=== PATIENT | female | born 1995 | race Two or more races ===

== ENCOUNTER 2016-10-06 22:44 | Emergency (ER) | payer BC, OTHER ==
[~2016-10-06 22:44] MED LIST: PROAIR HFA8.5 GM INH
[2016-10-06 22:51] VITALS: BP 111/72
[2016-10-06] MEDS ORDERED: CEPH500T PO (23:03)
--- NOTE | 2016-10-06 23:03 | PHYS DOC ---
Past Medical History Past Medical History: Asthma Past Surgical History: No Surgical History Alcohol Use: None Drug Use: None Adult General Chief Complaint Chief Complaint: TOE PROBLEM [facility] HPI Patient is a 21 year old female presents emergency department stating that her right great toe has been having pain and discomfort for the last 2 days. She states that she attempted toenails and had pulled piece of skin back and it started bleeding. She states that she has had some thick yellow drainage coming from the site. She has been using peroxide and Epsom salts soaks with no relief. Patient denies taking anything for pain and discomfort. She denies fever , chills or any nausea vomiting. Review of Systems Review of Systems Constitutional: Denies fever or chills [] Eyes: Denies change in visual acuity, redness, or eye pain [] HENT: Denies nasal congestion or sore throat [] Respiratory: Denies cough or shortness of breath [] Cardiovascular: No additional information not addressed in HPI [] GI: Denies abdominal pain, nausea, vomiting, bloody stools or diarrhea [] : Denies dysuria or hematuria [] Musculoskeletal: Denies back pain or joint pain [] Integument: Denies rash or skin lesions. Complaint of redness with yellow drainage and tenderness on the medial part of the right great toe Neurologic: Denies headache, focal weakness or sensory changes [] Endocrine: Denies polyuria or polydipsia [] Allergies Allergies Allergies Coded Allergies Type Severity Reaction Last Updated Verified Penicillins Allergy Unknown 06/04/15 Yes Physical Exam Physical Exam Constitutional: Well developed, well nourished, no acute distress, non-toxic appearance. [] HENT: Normocephalic, atraumatic, bilateral external ears normal, oropharynx moist, no oral exudates, nose normal. [] Eyes: PERRLA, EOMI, conjunctiva normal, no discharge. [] Neck: Normal range of motion, no tenderness, supple, no stridor. [] Cardiovascular:Heart rate regular rhythm Lungs & Thorax: No respiratory distress noted Skin: Warm, dry, no erythema, no rash. [] Back: No tenderness Extremities: No tenderness, no cyanosis, no clubbing, ROM intact, no edema. Patient's right great toe on the medial part appears to be inflamed with tenderness noted, minimal drainage noted from the area that appears to be clear to yellowish in color. Neurologic: Alert and oriented X 3, normal motor function, normal sensory function, no focal deficits noted. [] Psychologic: Affect normal, judgement normal, mood normal. [] Current Patient Data Vital Signs Vital Signs Date Time Temp Pulse Resp B/P (MAP) Pulse Ox O2 Delivery O2 Flow Rate FiO2 10/06/16 22:51 98.8 78 19 99 Room Air 98.8 EKG EKG [] Radiology/Procedures Radiology/Procedures [] Course & Med Decision Making Course & Med Decision Making Pertinent Labs and Imaging studies reviewed. (See chart for details) Patient will be provided with Keflex for infection and she is breast-feeding. She'll be instructed to use Tylenol or ibuprofen for pain and discomfort. Continue with the warm Epsom salt soaks 4-5 times a day. Also recommended not using peroxide as it has been known to delay healing. Patient will be discharged home in stable condition. Signs and symptoms to return back to emergency department as been provided. Patient agrees with discharge instructions treatment regimens and follow-up recommendations. [] Dragon Disclaimer Dragon Disclaimer This electronic medical record was generated, in whole or in part, using a voice recognition dictation system. Departure Departure Impression: Primary Impression: Paronychia of great toe, right Disposition: 01 HOME, SELF-CARE Condition: STABLE Referrals: NO PCP (PCP) Patient Instructions: Paronychia, [id number] Additional Instructions: Activity as tolerated. Medications as prescribed. Tylenol for pain and discomfort. Elevation as much as possible. Warm Epsom salt soaks 4-5 times a day for 20 minutes at a time. Avoid using peroxide on the areas as delays healing. You may apply antibiotic ointment to the area after cleaning it with soap and water. Follow-up to primary care physician in the next 3-5 days. Return back to emergency department for signs and symptoms become worse. Scripts Cephalexin (CEPHALEXIN) 500 Mg Tablet 1 TAB PO BID, #20 TAB Prov: LAVON CAMPOS APRN 10/06/16 LAVON CAMPOS APRN Oct 06, 2016 23:03
== END 2016-10-06 23:01 | disposition home or self-care (01) ==
LOC: ER 22:44
DX: L03.031 Cellulitis of right toe (principal); J45.909 Unspecified asthma, uncomplicated; Z88.0 Allergy status to penicillin
CPT/HCPCS: 99283

== ENCOUNTER 2017-04-25 12:07 | Emergency (ER) | payer SELFPAY, BC ==
[2017-04-25] MEDS: HYDROcodone/APAP 5/325MG 1 TAB TABLET PO (14:28)
[2017-04-25 14:31] LABS: URINE HCG POC HCG NEGATIVE (Negative)
[2017-04-25 14:32] LABS: BILIRUBIN,URINE NEGATIVE (NEG); CLARITY,URINE CLEAR; COLOR,URINE YELLOW; GLUCOSE,URINE NEGATIVE (NEG); NITRITE,URINE NEGATIVE (NEG); PROTEIN,URINE NEGATIVE (NEG-TRACE); UROBILINOGEN,URINE 0.2 mg/dL (0.2 mg/dL)
[2017-04-25 14:47] LABS: BACTERIA,URINE FEW /HPF (0-FEW); RBC,URINE 0 /HPF (0-2); SQUAMOUS EPITHELIAL CELL,UR MOD /LPF; WBC,URINE OCC /HPF (0-4)
== END 2017-04-25 15:38 | disposition home or self-care (01) ==
LOC: ER 12:07
DX: S39.012A Strain of muscle, fascia and tendon of lower back, initial encounter (principal); J45.909 Unspecified asthma, uncomplicated; Z88.0 Allergy status to penicillin; V47.5XXA Car driver injured in collision with fixed or stationary object in traffic accident, initial encounter; Y93.I9 Activity, other involving external motion; Y92.410 Unspecified street and highway as the place of occurrence of the external cause; Y99.8 Other external cause status
CPT/HCPCS: 71046; 72100; 81001; 81025; 99285-25

== ENCOUNTER 2017-11-25 08:13 | Emergency (ER) | payer SELFPAY ==
[2017-11-25 08:38] LABS: ADD MAN DIFF? NO
[2017-11-25 08:43] LABS: BASO % 0 % (0-3); EOS # 0.4 x10^3/uL (0.0-0.7); EOS % 4 % (0-3); HEMATOCRIT 37.7 % (36.0-47.0); HEMOGLOBIN 12.7 g/dL (12.0-15.5); LYMPH # 2.2 x10^3/uL (1.0-4.8); LYMPH % 23 % (24-48); MEAN CORPUSCULAR HEMOGLOBIN 29 pg (25-35); MEAN CORPUSCULAR HGB CONC 34 g/dL (31-37); MEAN CORPUSCULAR VOLUME 85 fL (79-100); MONO # 0.8 x10^3/uL (0.0-1.1); MONO % 8 % (0-9); NEUT # 6.3 x10^3uL (1.8-7.7); NEUT % 65 % (31-73); PLATELET COUNT 194 x10^3/uL (140-400); RED BLOOD COUNT 4.45 x10^6/uL (3.50-5.40); RED CELL DISTRIBUTION WIDTH 14.2 % (11.5-14.5); WHITE BLOOD COUNT 9.6 x10^3/uL (4.0-11.0)
[2017-11-25 08:47] LABS: ANION GAP 10 (6-14); BLOOD UREA NITROGEN 7 mg/dL (7-20); BUN/CREATININE RATIO 14 (6-20); CALCIUM 8.5 mg/dL (8.5-10.1); CARBON DIOXIDE 24 mmol/L (21-32); CHLORIDE 102 mmol/L (98-107); CREATININE 0.5 mg/dL (0.6-1.0); GFR 155.7; GLUCOSE 104 mg/dL (70-99); POTASSIUM 3.5 mmol/L (3.5-5.1); SODIUM 136 mmol/L (136-145)
[2017-11-25 08:53] LABS: ALBUMIN 3.8 g/dL (3.4-5.0); ALBUMIN/GLOBULIN RATIO 1.2 (1.0-1.7); ALK PHOS 77 U/L (46-116); ALT (SGPT) 21 U/L (14-59); AST (SGOT) 18 U/L (15-37); TOTAL BILIRUBIN 0.4 mg/dL (0.2-1.0); TOTAL PROTEIN 7.1 g/dL (6.4-8.2)
[2017-11-25 09:09] LABS: INR 1.1 (0.8-1.1); PARTIAL THROMBOPLASTIN TIME 30 SEC (24-38); PROTHROMBIN TIME PATIENT 13.5 SEC (11.7-14.0)
[2017-11-25] MEDS: IV NORMAL SALINE 1000ML BAG 1,000 ML IV (11:11)
== END 2017-11-25 12:12 | disposition home or self-care (01) ==
LOC: ER 12:12
DX: O03.9 Complete or unspecified spontaneous abortion without complication (principal); O99.519 Diseases of the respiratory system complicating pregnancy, unspecified trimester; J45.909 Unspecified asthma, uncomplicated; Z88.0 Allergy status to penicillin; Z3A.00 Weeks of gestation of pregnancy not specified
CPT/HCPCS: 36415; 76801; 76817; 80053; 84702; 85025; 85610; 85730; 86900; 86901; 99285-25; J7030

== ENCOUNTER 2018-06-19 16:27 | Emergency (ER) | payer BC, OTHER ==
[~2018-06-19] VITALS: Ht 157.5 cm; Wt 74.4 kg
[~2018-06-19 16:27] MED LIST changes: +ALBU2.5V8 INH; +CEPH500T PO; +NITR100C62 PO; -PROAIR HFA8.5 GM INH
[2018-06-19 16:45] VITALS: BP 125/60
[2018-06-19 18:46] LABS: BILIRUBIN,URINE NEGATIVE (NEG); CLARITY,URINE TURBID; COLOR,URINE YELLOW; NITRITE,URINE NEGATIVE (NEG); PROTEIN,URINE NEGATIVE (NEG-TRACE)
[2018-06-19 18:52] LABS: BACTERIA,URINE MODERATE /HPF (0-FEW); RBC,URINE 0 /HPF (0-2); SQUAMOUS EPITHELIAL CELL,UR MANY /LPF
[2018-06-19 18:53] LABS: AMORPHOUS SEDIMENT,UR PRESENT /HPF
--- NOTE | 2018-06-19 19:48 | RAD ---
OB LIMITED History: Pelvic pain on the left, , urinary tract infection, cramping Comparison: May 18, 2018 Findings: Multiple transabdominal sonographic images of the pelvis are submitted. Uterus measured 12.6 x 8.8 x 16.7 cm. There is a single intrauterine fetus. There is demonstrable cardiac activity 157 bpm. There is breech presentation. Cervix measured 4.4 cm. anatomy is not well visualized at this age of the . Left maternal ovary measured 3.5 x 1.5 x 1.5 cm with normal low resistance vascularity. Right ovary is not well-visualized. There is posterior placenta, also apparently complete placenta previa. Biometry data are as follows: Biparietal diameter 3.23 cm corresponding 16 weeks 1 day Head circumference 12.59 cm corresponding with 16 weeks 3 days Abdominal circumference 10.26 cm corresponding 16 weeks 2 days Femur length 2.02 cm corresponds weeks 0 days HC/AC ratio 1.23 Estimated weight 147 g +/- 22 g Adjusted ultrasound age 16 weeks 2 days with estimated delivery date 12/02/2018. LMP age 15 weeks 6 days with estimated delivery date of 12/05/2018. There has been adequate interval growth. Impression: 1. There is posterior placenta and apparently complete placenta previa for which follow-up advised. 2. There is breech presentation of the single viable intrauterine fetus. Electronically signed by: [place] MD (06/19/2018 7:44 PM) [facility]
[2018-06-19] MEDS ORDERED: NITR100C62 PO (19:55)
--- NOTE | 2018-06-19 19:56 | PHYS DOC ---
Past Medical History Past Medical History: Asthma Past Surgical History: No Surgical History Alcohol Use: None Drug Use: None Adult General Chief Complaint Chief Complaint: ABDOMINAL PAIN IN HPI HPI Patient is a 22 year old female who presents with lower abdominal pain in . The patient states she is 16 weeks . She denies vaginal discharge or bleeding. She denies fever, nausea or vomiting. Review of Systems Review of Systems Constitutional: Denies fever or chills [] Respiratory: Denies cough or shortness of breath [] Cardiovascular: No additional information not addressed in HPI [] GI: See HPI : See HPI Musculoskeletal: Denies back pain or joint pain [] Integument: Denies rash or skin lesions [] Neurologic: Denies headache, focal weakness or sensory changes [] Endocrine: Denies polyuria or polydipsia [] All other systems were reviewed and found to be within normal limits, except as documented in this note. Allergies Allergies Allergies Coded Allergies Type Severity Reaction Last Updated Verified Penicillins Allergy Intermediate 07/27/18 Yes Physical Exam Physical Exam Constitutional: Well developed, well nourished, no acute distress, non-toxic appearance. [] Cardiovascular:Heart rate regular rhythm, no murmur [] Lungs & Thorax: Bilateral breath sounds clear to auscultation [] Abdomen: Bowel sounds normal, soft, mild suprapubic cramping tenderness, no masses, no pulsatile masses. [] Skin: Warm, dry, no erythema, no rash. [] Back: No tenderness, no CVA tenderness. [] Extremities: No tenderness, no cyanosis, no clubbing, ROM intact, no edema. [] Neurologic: Alert and oriented X 3, normal motor function, normal sensory function, no focal deficits noted. [] Psychologic: Affect normal, judgement normal, mood normal. [] Current Patient Data Vital Signs Lab Values Laboratory Tests Test 06/19/18 17:15 06/19/18 18:25 Urine Collection Type Unknown Urine Color Yellow Urine Clarity Turbid Urine pH 7.0 Urine Specific [place] 1.020 Urine Protein Negative mg/dL (NEG-TRACE) Urine Glucose (UA) Negative mg/dL (NEG) Urine Ketones (Stick) Negative mg/dL (NEG) Urine Blood Negative (NEG) Urine Nitrite Negative (NEG) Urine Bilirubin Negative (NEG) Urine Urobilinogen Dipstick 1.0 mg/dL (0.2 mg/dL) Urine Leukocyte Esterase Moderate (NEG) Urine RBC 0 /HPF (0-2) Urine WBC 11-20 /HPF (0-4) Urine Squamous Epithelial Cells Many /LPF Urine Amorphous Sediment Present /HPF Urine Bacteria Moderate /HPF (0-FEW) POC Urine HCG, Qualitative Hcg positive (Negative) Microbiology 06/19/18 Urine Culture - Final, Complete 06/19/18 Urine Culture Result 1 (CHAY) - Final, Complete EKG EKG [] Radiology/Procedures Radiology/Procedures [] PATIENT: MICHAEL LECHUGA ACCOUNT: [id number] : 1995 LOCATION: ER AGE: 22 SEX: F EXAM STATUS: REG ER ORD. PHYSICIAN: SALEEM GLASS APRN REASON: cramping, pelvic pain PROCEDURE: OB LIMITED OB LIMITED History: Pelvic pain on the left, , urinary tract infection, cramping Comparison: May 18, 2018 Findings: Multiple transabdominal sonographic images of the pelvis are submitted. Uterus measured 12.6 x 8.8 x 16.7 cm. There is a single intrauterine fetus. There is demonstrable cardiac activity 157 bpm. There is breech presentation. Cervix measured 4.4 cm. anatomy is not well visualized at this age of the . Left maternal ovary measured 3.5 x 1.5 x 1.5 cm with normal low resistance vascularity. Right ovary is not well-visualized. There is posterior placenta, also apparently complete placenta previa. Biometry data are as follows: Biparietal diameter 3.23 cm corresponding 16 weeks 1 day Head circumference 12.59 cm corresponding with 16 weeks 3 days Abdominal circumference 10.26 cm corresponding 16 weeks 2 days Femur length 2.02 cm corresponds weeks 0 days HC/AC ratio 1.23 Estimated weight 147 g +/- 22 g Adjusted ultrasound age 16 weeks 2 days with estimated delivery date 12/02/2018. LMP age 15 weeks 6 days with estimated delivery date of 12/05/2018. There has been adequate interval growth. Impression: 1. There is posterior placenta and apparently complete placenta previa for which follow-up advised. 2. There is breech presentation of the single viable intrauterine fetus. Electronically signed by: Farzaneh Carrillo MD (06/19/2018 7:44 PM) [facility] DICTATED and SIGNED BY: FARZANEH CARRILLO MD DATE: 06/19/181939 Course & Med Decision Making Course & Med Decision Making Pertinent Labs and Imaging studies reviewed. (See chart for details) []The patient is positive for a UTI. Dragon Disclaimer Dragon Disclaimer This electronic medical record was generated, in whole or in part, using a voice recognition dictation system. Departure Departure Impression: Primary Impression: Abdominal pain during Additional Impression: Urinary tract infection Disposition: HOME, SELF-CARE Condition: STABLE Referrals: NO PCP (PCP) Patient Instructions: Abdominal Pain During , - Urinary Tr act Infection Additional Instructions: Take medication as directed. Increase fluids and rest. Follow-up with Dr. Felipe and make sure that he is aware of your ultrasound report. Scripts Nitrofurantoin Monohyd/M-Cryst (MACROBID 100 MG CAPSULE) 100 Mg Capsule 1 CAP PO BID for UTI, #14 CAP Prov: SALEEM GLASS APRN 06/19/18 Problem Qualifiers SALEEM GLASS APRN Jun 19, 2018 19:56
== END 2018-06-19 20:06 | disposition home or self-care (01) ==
LOC: ER 16:27
DX: O23.42 Unspecified infection of urinary tract in pregnancy, second trimester (principal); O32.1XX0 Maternal care for breech presentation, not applicable or unspecified; O44.02 Complete placenta previa NOS or without hemorrhage, second trimester; O99.512 Diseases of the respiratory system complicating pregnancy, second trimester; J45.909 Unspecified asthma, uncomplicated; Z88.0 Allergy status to penicillin; Z3A.16 16 weeks gestation of pregnancy
CPT/HCPCS: 76815; 81001; 81025; 87086; 99284-25

== ENCOUNTER → 2018-07-11 | Outpatient (CLI) | payer BC, OTHER ==
--- NOTE | 2018-07-11 11:15 | RAD ---
EXAM: Obstetrics sonogram. HISTORY: Size and dates discrepancy. Low-lying placenta. TECHNIQUE: 06/19/2018. COMPARISON: Sonographic imaging of a gravid uterus was performed. FINDINGS: There is a single intrauterine fetus in cephalic presentation with a heart rate of 163 bpm. The stomach, kidneys, bladder, spine, brain, facial profile and heart are unremarkable. There is a three-vessel vocal cord with normal insertion. There is a posterior placenta which extends to 3.0 cm from the internal cervical os. The cervix is closed and measures 4.7 cm in length. The amniotic fluid index is normal at 14.0 cm. The biparietal diameter is 4.46 cm, corresponding with 19 weeks and 3 days. The head circumference is 16.4 cm, corresponding with 19 weeks and 1 day. The femoral length is 2.99 cm, corresponding with 19 weeks and 2 days. The abdominal circumference is 14.45 cm, corresponding with 19 weeks and 5 days. The estimate a gestational age based on combined ultrasound measurements is 19 weeks and 3 days. The estimated weight is 295 g. The estimated due date based on ultrasound measurements is 12/02/2018. IMPRESSION: 1. Single intrauterine fetus with an estimated gestational age based on ultrasound measurements of 19 weeks and 3 days and heart rate of 163 bpm. 2. Unremarkable anatomy survey. 3. Posterior placenta. There is no evidence of a low-lying placenta or placenta previa. Electronically signed by: Rossana Matos MD (07/11/2018 11:11 AM) [facility]
== END | disposition home or self-care (01) ==
LOC: US 10:00
PROVIDERS: ATTEND Obstetrics & Gynecology
DX: Z3A.19 19 weeks gestation of pregnancy (principal); O26.842 Uterine size-date discrepancy, second trimester
CPT/HCPCS: 76805

== ENCOUNTER 2018-07-27 20:39 | Emergency (ER) | payer BC, OTHER ==
[~2018-07-27] VITALS: Ht 157.5 cm; Wt 78.9 kg
[2018-07-27] MEDS ORDERED: IV NORMAL SALINE 500ML BAG 500 ML IV ONE (22:30)
[2018-07-27 22:55] LABS: BASO % 0 % (0-3); EOS # 0.5 x10^3/uL (0.0-0.7); EOS % 6 % (0-3); HEMATOCRIT 36.2 % (36.0-47.0); HEMOGLOBIN 12.4 g/dL (12.0-15.5); LYMPH # 1.4 x10^3/uL (1.0-4.8); LYMPH % 17 % (24-48); MEAN CORPUSCULAR HEMOGLOBIN 30 pg (25-35); MEAN CORPUSCULAR HGB CONC 34 g/dL (31-37); MEAN CORPUSCULAR VOLUME 89 fL (79-100); MONO # 0.9 x10^3/uL (0.0-1.1); MONO % 11 % (0-9); NEUT # 5.4 x10^3uL (1.8-7.7); NEUT % 66 % (31-73); PLATELET COUNT 163 x10^3/uL (140-400); RED BLOOD COUNT 4.09 x10^6/uL (3.50-5.40); RED CELL DISTRIBUTION WIDTH 14.1 % (11.5-14.5); WHITE BLOOD COUNT 8.3 x10^3/uL (4.0-11.0)
[2018-07-27 23:02] LABS: CALCIUM 8.5 mg/dL (8.5-10.1); CREATININE 0.4 mg/dL (0.6-1.0); GFR 199.6; POTASSIUM 3.4 mmol/L (3.5-5.1)
[2018-07-27 23:08] LABS: ALBUMIN/GLOBULIN RATIO 0.8 (1.0-1.7); TOTAL BILIRUBIN 0.3 mg/dL (0.2-1.0)
[2018-07-27 23:28] LABS: BILIRUBIN,URINE NEGATIVE (NEG); CLARITY,URINE CLOUDY; COLOR,URINE YELLOW; NITRITE,URINE NEGATIVE (NEG); PROTEIN,URINE NEGATIVE (NEG-TRACE)
[2018-07-27 23:35] LABS: BACTERIA,URINE MANY /HPF (0-FEW); RBC,URINE 0 /HPF (0-2); SQUAMOUS EPITHELIAL CELL,UR MANY /LPF
--- NOTE | 2018-07-27 23:49 | EKG ---
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
--- NOTE | 2018-07-28 00:04 | PHYS DOC ---
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 Patient says she was at work today, when she was walking she started having cramping in her legs. 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 Patient feel like her leg is swollen. She also had a cold, sinus congestion. Patient has history of asthma, she had trouble breathing off and on, denies any chest pain. Patient denies any abdominal pain, no fever, no headache, no pelvic pain, no vaginal bleeding or discharge. 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 Review of Systems Review of Systems Constitutional: Denies fever or chills [] Eyes: Denies change in visual acuity, redness, or eye pain [] HENT: Positive for nasal congestion, no sore throat [] Respiratory: Denies cough, positive for shortness of breath [] Cardiovascular: No additional information not addressed in HPI [] GI: Denies abdominal pain, nausea, vomiting, bloody stools or diarrhea [] : Denies dysuria or hematuria [] Musculoskeletal: POSITIVE FOR LEGS PAIN. Integument: Denies rash or skin lesions [] Neurologic: Denies headache, focal weakness or sensory changes [] Endocrine: Denies polyuria or polydipsia [] All other systems were reviewed and found to be within normal limits, except as documented in this note. Current Medications Current Medications Current Medications Medications (Trade) Dose Ordered Sig/Kevin Start Time Stop Time Status Last Admin Dose Admin Sodium Chloride 500 ml @ 500 mls/hr 1X ONCE 07/27/18 22:30 07/27/18 23:29 DC 07/27/18 22:44 500 MLS/HR Allergies Allergies Allergies Coded Allergies Type Severity Reaction Last Updated Verified Penicillins Allergy Intermediate 07/27/18 Yes Physical Exam Physical Exam Constitutional: Well developed, well nourished, no acute distress, non-toxic appearance. [] HENT: Normocephalic, atraumatic, bilateral external ears normal, oropharynx moist, no oral exudates, nose: BILATERAL NARES ERYTHEMA AND EDEMA. Eyes: PERRLA, EOMI, conjunctiva normal, no discharge. [] Neck: Normal range of motion, no tenderness, supple, no stridor. [] Cardiovascular:Heart rate regular rhythm, no murmur [] Lungs & Thorax: Bilateral breath sounds clear to auscultation [] Abdomen: Bowel sounds normal, soft, no tenderness, no masses, no pulsatile masses. [] Skin: Warm, dry, no erythema, no rash. [] Back: No tenderness, no CVA tenderness. [] Extremities: No tenderness, no cyanosis, no clubbing, ROM intact, no edema. NO LEGS SWELLING, NO PEDAL EDEMA, NO CALF TENDERNESS. Neurologic: Alert and oriented X 3, normal motor function, normal sensory function, no focal deficits noted. [] Psychologic: Affect normal, judgement normal, mood normal. [] Current Patient Data Vital Signs Vital Signs Date Time Temp Pulse Resp B/P (MAP) Pulse Ox O2 Delivery O2 Flow Rate FiO2 07/28/18 00:23 90 22 107/63 (78) 94 Room Air 07/27/18 21:15 98.5 98.5 Lab Values Laboratory Tests Test 07/27/18 22:40 07/27/18 23:20 White Blood Count 8.3 x10^3/uL (4.0-11.0) Red Blood Count 4.09 x10^6/uL (3.50-5.40) Hemoglobin 12.4 g/dL (12.0-15.5) Hematocrit 36.2 % (36.0-47.0) Mean Corpuscular Volume 89 fL (79-100) Mean Corpuscular Hemoglobin 30 pg (25-35) Mean Corpuscular Hemoglobin Concent 34 g/dL (31-37) Red Cell Distribution Width 14.1 % (11.5-14.5) Platelet Count 163 x10^3/uL (140-400) Neutrophils (%) (Auto) 66 % (31-73) Lymphocytes (%) (Auto) 17 % (24-48) L Monocytes (%) (Auto) 11 % (0-9) H Eosinophils (%) (Auto) 6 % (0-3) H Basophils (%) (Auto) 0 % (0-3) Neutrophils # (Auto) 5.4 x10^3uL (1.8-7.7) Lymphocytes # (Auto) 1.4 x10^3/uL (1.0-4.8) Monocytes # (Auto) 0.9 x10^3/uL (0.0-1.1) Eosinophils # (Auto) 0.5 x10^3/uL (0.0-0.7) Basophils # (Auto) 0.0 x10^3/uL (0.0-0.2) Sodium Level 137 mmol/L (136-145) Potassium Level 3.4 mmol/L (3.5-5.1) L Chloride Level 102 mmol/L (98-107) Carbon Dioxide Level 24 mmol/L (21-32) Anion Gap 11 (6-14) Blood Urea Nitrogen 5 mg/dL (7-20) L Creatinine 0.4 mg/dL (0.6-1.0) L Estimated GFR (Cockcroft-Gault) 199.6 BUN/Creatinine Ratio 13 (6-20) Glucose Level 106 mg/dL (70-99) H Calcium Level 8.5 mg/dL (8.5-10.1) Total Bilirubin 0.3 mg/dL (0.2-1.0) Aspartate Amino Transferase (AST) 23 U/L (15-37) Alanine Aminotransferase (ALT) 33 U/L (14-59) Alkaline Phosphatase 79 U/L (46-116) Total Protein 7.0 g/dL (6.4-8.2) Albumin 3.0 g/dL (3.4-5.0) L Albumin/Globulin Ratio 0.8 (1.0-1.7) L Urine Collection Type Void Urine Color Yellow Urine Clarity Cloudy Urine pH 7.0 Urine Specific [place] 1.025 Urine Protein Negative mg/dL (NEG-TRACE) Urine Glucose (UA) Negative mg/dL (NEG) Urine Ketones (Stick) Negative mg/dL (NEG) Urine Blood Negative (NEG) Urine Nitrite Negative (NEG) Urine Bilirubin Negative (NEG) Urine Urobilinogen Dipstick 1.0 mg/dL (0.2 mg/dL) Urine Leukocyte Esterase Small (NEG) Urine RBC 0 /HPF (0-2) Urine WBC 1-4 /HPF (0-4) Urine Squamous Epithelial Cells Many /LPF Urine Bacteria Many /HPF (0-FEW) Urine Mucus Marked /LPF Laboratory Tests 07/27/18 22:40 Laboratory Tests 07/27/18 22:40 EKG EKG EKG was done, read by this physician, rate of 101, sinus tachycardia. [] Radiology/Procedures Radiology/Procedures CHEST XRAY: NO ACUTE DISEASE. Course & Med Decision Making Course & Med Decision Making Pertinent Labs and Imaging studies reviewed. (See chart for details) FHT: 140 BPM. PATIENT'S OXYGEN SATURATION IS 100% ON ROOM AIR, SHE HAS NO CHEST PAIN, NO SHORTNES OF AIR AT THIS TIME, NO CLINICAL EVIDENCE OF DVT OR PE. Dragon Disclaimer Dragon Disclaimer This electronic medical record was generated, in whole or in part, using a voice recognition dictation system. 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
[2018-07-28 00:23] VITALS: BP 107/63
--- NOTE | 2018-07-28 07:38 | RAD ---
CHEST AP ONLY Clinical Indication: soa, sinus congestion, hx of asthma, 22 weeks preg, double shielded. Comparison: 04/25/2017 two-view chest x-ray exam. Findings: Electronic device overlies the left mid thoracic level. The cardiomediastinal silhouette is normal. Lungs are clear. There is no pneumothorax. No pleural effusion is appreciated. No acute bone abnormality. IMPRESSION: No acute cardiopulmonary process. Electronically signed by: Reuben Ashby MD (07/28/2018 7:35 AM) [facility]
== END 2018-07-28 00:34 | disposition home or self-care (01) ==
LOC: ER 20:39
DX: O99.512 Diseases of the respiratory system complicating pregnancy, second trimester (principal); R06.00 Dyspnea, unspecified; R60.0 Localized edema; M79.604 Pain in right leg; M79.605 Pain in left leg; J45.909 Unspecified asthma, uncomplicated; Z88.0 Allergy status to penicillin; Z3A.22 22 weeks gestation of pregnancy
CPT/HCPCS: 36415; 71045; 80053; 81001; 85025; 87086; 93005; 99285; J7040; 96360

== ENCOUNTER → 2018-08-22 | Outpatient (CLI) | payer BC, OTHER ==
[2018-07-28 00:23] VITALS: BP 107/63
--- NOTE | 2018-08-22 11:39 | CARD ---
MR#: [id number] Date of Study: 08/22/2018 Ordering Physician: LYDIA HASSAN, Referring Physician: LYDIA HASSAN, Tech: Rahel Maria APPROVED REPORT EXAM: Two-dimensional and M-mode echocardiogram with Doppler and color Doppler. Other Information Quality : GoodHR: 88bpm INDICATION Dyspnea RISK FACTORS Asthma 2D DIMENSIONS RVDd2.2 (2.9-3.5cm)Left Atrium(2D)3.4 (1.6-4.0cm) IVSd0.9 (0.7-1.1cm)Aortic Root(2D)2.6 (2.0-3.7cm) LVDd4.7 (3.9-5.9cm)LVOT Diameter2.1 (1.8-2.4cm) PWd0.8 (0.7-1.1cm)LVDs3.6 (2.5-4.0cm) FS (%) 24.8 %SV51.3 ml LVEF(%)49.1 (>50%) Aortic Valve AoV Peak Fabio.141.0cm/sAoV VTI23.4cm AO Peak GR.7.9mmHgLVOT Peak Fabio.100.5cm/s LVOT VTI 17.46cmAO Mean GR.4mmHg MIRACLE (VMAX)1.22gd5QGI (VTI)2.68cm2 Mitral Valve MV E Broiierv14.7cm/sMV DECEL [id number] MV A Vwklhptk55.3cm/sMV IPF46gd E/A Ratio1.5MVA (PHT)5.21cm2 TDI E/Lateral E'5.1E/Medial E'8.0 Pulmonary Valve PV Peak Kkwvehfs76.7cm/sPV Peak Grad.4mmHg Tricuspid Valve TR P. Nlzutlll941ql/sRAP DODLEFNY7exYu TR Peak Gr.02uvUaVCUW00ffUi Pulmonary Vein S1 Eukbjwis13.4cm/sD2 Rwopcdgo12.4cm/s PVa [id number] LEFT VENTRICLE The left ventricle is normal size. There is normal left ventricular wall thickness. The left ventricu lar systolic function is normal and the ejection fraction is within normal range. The Ejection Fracti on is 50-55%. There is normal LV segmental wall motion. The left ventricular diastolic function and f illing is normal for age. RIGHT VENTRICLE The right ventricle is normal size. There is normal right ventricular wall thickness. The right ventr icular systolic function is normal. ATRIA The left atrium size is normal. The right atrium size is normal. The interatrial septum is intact wit h no evidence for an atrial septal defect or patent foramen ovale as noted on 2-D or Doppler imaging. AORTIC VALVE The aortic valve is normal in structure and function. Doppler and Color Flow revealed no significant aortic regurgitation. There is no significant aortic valvular stenosis. MITRAL VALVE The mitral valve is normal in structure and function. There is no evidence of mitral valve prolapse. There is no mitral valve stenosis. Doppler and Color-flow revealed trace mitral regurgitation. TRICUSPID VALVE The tricuspid valve is normal in structure and function. Doppler and Color Flow revealed trace tricus pid regurgitation with an estimated PAP of 24 mmHg. There is no tricuspid valve stenosis. PULMONIC VALVE The pulmonary valve is normal in structure and function. Doppler and Color Flow revealed trace pulmon ic valvular regurgitation. There is no pulmonic valvular stenosis. GREAT VESSELS The aortic root is normal in size. The IVC is normal in size and collapses >50% with inspiration. PERICARDIAL EFFUSION There is no evidence of significant pericardial effusion. Critical Notification Critical Value: No <Conclusion> The left ventricular systolic function is normal and the ejection fraction is within normal range. Th e Ejection Fraction is 50-55%. There is normal LV segmental wall motion. Signed by : Lydia Hassan, Electronically Approved : 08/22/2018 11:38:31
== END | disposition home or self-care (01) ==
LOC: ECHO 10:11
PROVIDERS: ATTEND Internal Medicine Cardiovascular Disease
DX: R06.09 Other forms of dyspnea (principal); J45.998 Other asthma
CPT/HCPCS: 93306

== ENCOUNTER 2018-09-15 13:52 | Observation (INO) | payer BC, OTHER ==
[2018-09-15] MEDS ORDERED: IV RINGERS,LACTATED 1000ML 1,000 ML IV SCH (13:53)
[2018-09-15] MEDS ORDERED: ONDANSETRON PF 4 MG/2 ML VIAL. IV PRN (14:00)
[2018-09-15] MEDS ORDERED: ACETAMINOPHEN 325 MG TABLET. PO PRN (14:00)
[2018-09-15 14:19] LABS: BILIRUBIN,URINE NEGATIVE (NEG); CLARITY,URINE CLEAR; COLOR,URINE YELLOW; NITRITE,URINE NEGATIVE (NEG); PROTEIN,URINE NEGATIVE (NEG-TRACE); UROBILINOGEN,URINE 0.2 mg/dL (0.2 mg/dL)
[2018-09-15 14:26] LABS: BARBITURATES NEG (NEG); BENZODIAZEPINES NEG (NEG); CANNABINOIDS NEG (NEG); COCAINE NEG (NEG); METHADONE NEG (NEG); OPIATES NEG (NEG); PHENCYCLIDINE NEG (NEG)
[2018-09-15 14:36] LABS: RBC,URINE OCC /HPF (0-2)
[2018-09-15 14:37] LABS: AMPHETAMINE/METHAMPHETAMINE NEG (NEG); BACTERIA,URINE MODERATE /HPF (0-FEW); SQUAMOUS EPITHELIAL CELL,UR MOD /LPF
== END 2018-09-15 15:03 | disposition home or self-care (01) ==
LOC: 3 SO LND 13:52
PROVIDERS: ADMIT Obstetrics & Gynecology; ATTEND Obstetrics & Gynecology
DX: O36.8130 Decreased fetal movements, third trimester, not applicable or unspecified (principal); Z3A.28 28 weeks gestation of pregnancy
CPT/HCPCS: 80307; 81001; 87086; G0379

== ENCOUNTER 2018-09-21 20:45 | Inpatient (IN) | payer BC, MEDICAID ==
[~2018-09-21] VITALS: Ht 157.5 cm; Wt 83.5 kg
[2018-09-21] MEDS ORDERED: ACETAMINOPHEN 325 MG TABLET. PO PRN (21:00)
[2018-09-21 21:11] LABS: BILIRUBIN,URINE NEGATIVE (NEG); CLARITY,URINE CLEAR; COLOR,URINE YELLOW; NITRITE,URINE NEGATIVE (NEG); PH,URINE 5.5; PROTEIN,URINE NEGATIVE (NEG-TRACE); UROBILINOGEN,URINE 0.2 mg/dL (0.2 mg/dL)
[2018-09-21] MEDS: IV RINGERS,LACTATED 1000ML 1,000 ML IV SCH ×2 (21:15→22:21)
[2018-09-21 21:19] LABS: BARBITURATES NEG (NEG); BENZODIAZEPINES NEG (NEG); CANNABINOIDS NEG (NEG); COCAINE NEG (NEG); METHADONE NEG (NEG); OPIATES NEG (NEG); PHENCYCLIDINE NEG (NEG)
[2018-09-21 21:21] LABS: AMPHETAMINE/METHAMPHETAMINE NEG (NEG)
[2018-09-21 21:27] LABS: BACTERIA,URINE MODERATE /HPF (0-FEW); RBC,URINE 0 /HPF (0-2); SQUAMOUS EPITHELIAL CELL,UR MANY /LPF
[2018-09-21 21:45] LABS: AMNIO PT NEGATIVE
[2018-09-21] MEDS ORDERED: ONDANSETRON PF 4 MG/2 ML VIAL. IV PRN (22:15)
[2018-09-21 22:37] LABS: BASO % 0 % (0-3); EOS # 0.1 x10^3/uL (0.0-0.7); EOS % 1 % (0-3); HEMATOCRIT 36.4 % (36.0-47.0); HEMOGLOBIN 12.5 g/dL (12.0-15.5); LYMPH % 10 % (24-48); MEAN CORPUSCULAR HEMOGLOBIN 31 pg (25-35); MEAN CORPUSCULAR HGB CONC 35 g/dL (31-37); MEAN CORPUSCULAR VOLUME 90 fL (79-100); MONO # 0.8 x10^3/uL (0.0-1.1); MONO % 8 % (0-9); NEUT # 8.4 x10^3uL (1.8-7.7); NEUT % 82 % (31-73); PLATELET COUNT 135 x10^3/uL (140-400); RED BLOOD COUNT 4.04 x10^6/uL (3.50-5.40); RED CELL DISTRIBUTION WIDTH 13.2 % (11.5-14.5); WHITE BLOOD COUNT 10.3 x10^3/uL (4.0-11.0)
[2018-09-21] MEDS: cefTRIAXone IV Push 1 GM VIAL. IVP SCH (22:45)
[2018-09-21] MEDS ORDERED: IV RINGERS,LACTATED 1000ML 1,000 ML IV SCH (23:00)
[2018-09-21] MEDS ORDERED: diphenhydrAMINE HCL 25 MG CAPSULE PO ONE (23:00)
[2018-09-21 23:07] LABS: ALBUMIN 2.8 g/dL (3.4-5.0); ALBUMIN/GLOBULIN RATIO 0.7 (1.0-1.7); CALCIUM 8.6 mg/dL (8.5-10.1); CREATININE 0.5 mg/dL (0.6-1.0); GFR 154.3; POTASSIUM 3.1 mmol/L (3.5-5.1); TOTAL BILIRUBIN 0.4 mg/dL (0.2-1.0); TOTAL PROTEIN 6.6 g/dL (6.4-8.2)
[2018-09-22] MEDS: IV RINGERS,LACTATED 1000ML 1,000 ML IV SCH ×3 (04:10→23:41)
[2018-09-22] MEDS: ACETAMINOPHEN 500 MG TABLET PO PRN ×2 (06:00→15:25)
[2018-09-22 10:12] VITALS: BP 103/62
--- NOTE | 2018-09-22 14:18 | PDOC1 ---
OB - History Hx of Present Care: Good Care Ultrasounds: Normal mid trimester US Obstetrical Complications: None Medical Complications: Other (asthma) Past Family/Social History * Past Medical, Surgical, Family and Obstetric Histories reviewed from chart. Rubella: Immune RPR/VDRL: Negative GBS Status: Unknown HBsAG: Negative OB - Chief Complaint & HPI Date of Admission: Date of Admission: Sep 21, 2018 at 20:45 Chief Complaint/History : 3 Para: 1 EGA: 30 Reason for admission: observation (low back pain and fever) Admission Nurse Assessment Rev: Yes OB - Admission Exam Physical Exam Vitals: VS - Last 72 Hours, by Label Date Time Temp Pulse Resp B/P (MAP) Pulse Ox O2 Delivery O2 Flow Rate FiO2 09/22/18 10:12 97.6 93 16 103/62 (76) Room Air 97.6 HEENT: Other (dry mucous membranes) Heart: Other (tachycardia) Lungs: Clear Abdomen: Gravid, Soft, Tender (Left flank pain) Extremities: Edema Reflexes: Normal Cervical Dilatation: None Effacement: 0% Station: Ballotable Membranes: Intact Heart Rate: Normal Accelerations: Accelerations Present Decelerations: No decelerations Contractions on Admission: None Text A: 29 wks IUP Pyelonephritis P: Observation for rehydration and treatment pyelonephritis with IV Rocephin. Continue IV abx until afebrile 24-36 hours. NST daily. KASANDRA CALIX Jr, MD Sep 22, 2018 14:18
[2018-09-22 20:06] VITALS: BP 117/66
[2018-09-22] MEDS: cefTRIAXone IV Push 1 GM VIAL. IVP SCH (22:14)
[2018-09-22 23:04] VITALS: BP 118/86
[2018-09-23 04:04] LABS: BASO % 0 % (0-3); EOS # 0.2 x10^3/uL (0.0-0.7); EOS % 3 % (0-3); HEMOGLOBIN 12.2 g/dL (12.0-15.5); LYMPH # 1.1 x10^3/uL (1.0-4.8); LYMPH % 15 % (24-48); MEAN CORPUSCULAR HEMOGLOBIN 31 pg (25-35); MEAN CORPUSCULAR HGB CONC 35 g/dL (31-37); MEAN CORPUSCULAR VOLUME 90 fL (79-100); MONO # 0.9 x10^3/uL (0.0-1.1); MONO % 12 % (0-9); NEUT # 5.3 x10^3uL (1.8-7.7); NEUT % 71 % (31-73); PLATELET COUNT 129 x10^3/uL (140-400); RED BLOOD COUNT 3.89 x10^6/uL (3.50-5.40); RED CELL DISTRIBUTION WIDTH 13.3 % (11.5-14.5); WHITE BLOOD COUNT 7.5 x10^3/uL (4.0-11.0)
[2018-09-23 06:07] VITALS: BP 103/69
[2018-09-23] MEDS: IV RINGERS,LACTATED 1000ML 1,000 ML IV SCH (07:27)
[2018-09-23] MEDS ORDERED: PRENATAL MULTIVITAMIN TABLET. PO SCH (09:00)
[2018-09-23 11:30] VITALS: BP 109/77
--- NOTE | 2018-09-23 15:50 | PDOC3 ---
OB DISCHARGE SUMMARY DATE OF ADMISSION: 09/21/18 DATE OF DISCHARGE: 09/23/18 REASON FOR ADMISSION: Other (Pyelonephritis) PROCEDURES: NST, Ultrasound, Mgmt of Med Complications, Mgmt of OB Complications PROCEDURES: None DISCHARGE DIAGNOSIS: Others (Pyelonephritis) DISCHARGE INFORMATION: Activity, Diet HOSPITAL COURSE Unremarkable CONDITION AT DISCHARGE Stable AKBAR MARRERO MD Sep 23, 2018 15:50
[2018-09-23] MEDS ORDERED: NITR100C62 PO (15:52)
[2018-09-23] MEDS: cefTRIAXone IV Push 1 GM VIAL. IVP SCH (18:22)
[2018-09-23 18:49] VITALS: BP 105/65
--- NOTE | 2018-09-23 18:50 | NUR ---
Discharge Discharge instructions given to patient at this time, no questions or concerns noted. To follow up Wed. in DR Felipe's office.
== END 2018-09-23 19:00 | disposition home or self-care (01) | DRG 833 ==
LOC: 3 SO LND 20:45 → OBSVTOIN 09-22 14:15 → 3 SO LND 09-22 15:32 → 3 NORTH 09-22 18:03
PROVIDERS: ADMIT Obstetrics & Gynecology; ATTEND Obstetrics & Gynecology
DX: O23.03 Infections of kidney in pregnancy, third trimester (principal); O99.513 Diseases of the respiratory system complicating pregnancy, third trimester; J45.909 Unspecified asthma, uncomplicated; Z3A.29 29 weeks gestation of pregnancy
CPT/HCPCS: 36415; 80053; 80307; 81001; 84112; 85025; 87040; 87086; G0378; G0379; J0696; J7120; Q0163